=== PATIENT | male | born 1995 | race Caucasian/White ===

== ENCOUNTER 2020-05-10 11:47 | Day surgery (SDC) | payer OTHER ==
[~2020-05-10] VITALS: Ht 193 cm; Wt 98.8 kg
[2020-05-10 12:27] VITALS: BP 131/72
[2020-05-10] MEDS ORDERED: LACTATED RINGERS 1,000 ML IV SCH (12:35)
[2020-05-10] MEDS ORDERED: CHLORHEXIDINE 15 ML UDC MM ONE (13:00)
[2020-05-10] MEDS ORDERED: none per patient (13:11)
[2020-05-10] MEDS ORDERED: MIDAZOLAM 1 MG/ML, 2ML ONE (13:31)
[2020-05-10] MEDS ORDERED: FENTANYL PF 250 MCG/5ML ONE (13:31)
[2020-05-10] MEDS ORDERED: PROPOFOL 10 MG/ML, 20ML ONE (13:32)
[2020-05-10] MEDS ORDERED: CEFAZOLIN 1,000 MG ONE ×2 (13:33)
[2020-05-10] MEDS ORDERED: DEXAMETHASONE 4 MG/ML, 1ML ONE ×2 (13:33)
[2020-05-10] MEDS ORDERED: ONDANSETRON 2MG/ML, 2ML ONE (13:33)
[2020-05-10] MEDS ORDERED: ROPIvacaine/PF 0.5%, 30 ML ONE (13:33)
[2020-05-10] MEDS ORDERED: EPINEPHRINE 1 MG/ML, 1ML ONE (13:33)
[2020-05-10] MEDS ORDERED: BUPIVACAINE/PF 0.5% ONE (13:41)
[2020-05-10] MEDS ORDERED: LIDOCAINE 1%, 20ML ONE (13:41)
[2020-05-10] MEDS ORDERED: GLYCOPYRROLATE 0.2MG/1ML, 5ML ONE (14:32)
[2020-05-10] MEDS ORDERED: NEOSTIGMINE 1 MG/ML, 10ML ONE (14:32)
[2020-05-10] MEDS ORDERED: DIPHENHYDRAMINE 50 MG/ML, 1ML IVPush PRN (15:30)
[2020-05-10] MEDS ORDERED: MEPERIDINE/PF 25MG/0.5ML IVPush PRN (15:30)
[2020-05-10] MEDS ORDERED: FENTANYL PF 100 MCG/2ML IV PRN (15:30)
[2020-05-10] MEDS ORDERED: PROMETHAZINE 25 MG/ML, 1ML IVPush PRN (15:30)
[2020-05-10] MEDS ORDERED: ONDANSETRON 2MG/ML, 2ML IVPush PRN (15:30)
[2020-05-10] MEDS ORDERED: ACETAMINOPHEN 325 MG TABLET PO PRN (15:30)
[2020-05-10] MEDS ORDERED: DIAZEPAM 5 MG/ML, 2ML IVPush PRN (15:30)
[2020-05-10] MEDS ORDERED: OXYcodone 5 MG/5 ML ORAL.SOL UDC PO PRN (15:30)
[2020-05-10] MEDS ORDERED: HYDROmorphone 1 MG/ML, 1ML INJ IVPush PRN (15:30)
[2020-05-10] MEDS ORDERED: KETOROLAC 30 MG/1 ML ONE (16:04)
[2020-05-10] MEDS ORDERED: FENTANYL PF 100 MCG/2ML ONE (16:05)
[2020-05-10] MEDS ORDERED: OXYcodone 5 MG/5 ML ORAL.SOL UDC ONE (16:05)
[2020-05-10] MEDS ORDERED: KETOROLAC 30 MG/1 ML IVPush ONE (16:30)
== END 2020-05-10 17:25 | disposition home or self-care (01) ==
LOC: OUT 11:47
PROVIDERS: ATTEND Orthopaedic Surgery
DX: S92.042A Displaced other fracture of tuberosity of left calcaneus, initial encounter for closed fracture (principal); Z11.59 Encounter for screening for other viral diseases; Z79.891 Long term (current) use of opiate analgesic; Z79.899 Other long term (current) drug therapy; V18.0XXA Pedal cycle driver injured in noncollision transport accident in nontraffic accident, initial encounter; Y93.55 Activity, bike riding; Y92.89 Other specified places as the place of occurrence of the external cause; Y99.8 Other external cause status
CPT/HCPCS: 28415; 64445; 73650; 87635; C1713; J0171; J0690; J1100; J1885; J2250; J2405; J2704; J2710; J2795; J3010; J7120; 76000